=== PATIENT | male | born 1940 | race Caucasian/White ===

== ENCOUNTER 2019-07-26 12:20 | Emergency (ER) | payer MEDICARE, OTHER ==
[2019-07-26 13:06] VITALS: BP 111/74; PULSE 78
[2019-07-26] MEDS ORDERED: Albuterol/Ipratropium 3.0-0.5 MG/3 ML Neb Soln NEB ONE (13:29)
--- NOTE | 2019-07-26 13:40 | EDM.PDOC ---
ED HPI GENERAL MEDICAL PROBLEM - General Chief Complaint: Respiratory Problem Stated Complaint: COUGH,DIFFICULTY BREATHING Time Seen by Provider: 07/26/19 13:05 Source of Information: Reports: Patient History Limitations: Reports: No Limitations - History of Present Illness INITIAL COMMENTS - FREE TEXT/NARRATIVE: 78-year-old with cough and shortness of breath for the past several days with intermittent fevers. He has generalized body aches and has a frequent cough with persistent wheezing. He continues to smoke. His is in the hospital with viral bronchitis and is awaiting a test for coronavirus. He did get a flu vaccine earlier this year. Onset: Gradual Duration: Day(s): (3 days) Associated Symptoms: Reports: Cough, Fever/Chills, Headaches, Malaise, Shortness of Breath, Other (Generalized body aches). Denies: Nausea/Vomiting denies Pain Score (Numeric/FACES): 0 - Related Data Allergies Allergy/AdvReac Type Severity Reaction Status Date / Time procaine HCl [From Novocain] Allergy Rash Verified 07/26/19 13:06 Home Meds: Home Meds Albuterol Sulfate [Albuterol Sulfate HFA] 2 puff INH Q4HR PRN 06/13/13 [History] Warfarin [Coumadin] 7.5 mg PO DAILY 06/13/13 [History] hydroCHLOROthiazide [Hydrochlorothiazide] 12.5 mg PO DAILY 06/13/13 [History] Past Medical History HEENT History: Reports: Impaired Vision Other HEENT History: bad tooth Cardiovascular History: Reports: Blood Clots/VTE/DVT, Hypertension, Other (See Below) Other Cardiovascular History: dyslipidemia Factor 5 Respiratory History: Reports: COPD, Other (See Below) Other Respiratory History: emphysema Other Musculoskeletal History: blood clotsleft leg and arm Hematologic History: Reports: Blood Transfusion(s), Other (See Below) Other Hematologic History: blood clots Factor 5 - Infectious Disease History Infectious Disease History: Reports: Chicken Pox, Measles, Mumps - Past Surgical History HEENT Surgical History: Reports: Cataract Surgery GI Surgical History: Reports: Polypectomy Other GI Surgeries/Procedures: ulcer Social & Family History - Tobacco Use Smoking Status *Q: Current Every Day Smoker Years of Tobacco use: 60 Packs/Tins Daily: 1 Used Tobacco, but Quit: No Second Hand Smoke Exposure: Yes - Caffeine Use Caffeine Use: Reports: Coffee - Recreational Drug Use Recreational Drug Use: No ED ROS GENERAL - Review of Systems Review Of Systems: See Below Constitutional: Reports: Fever, Chills HEENT: Denies: Throat Pain, Vision Change Respiratory: Reports: Shortness of Breath, Wheezing, Cough. Denies: Sputum Cardiovascular: Denies: Chest Pain GI/Abdominal: Denies: Abdominal Pain, Nausea, Vomiting Musculoskeletal: Reports: Muscle Pain Skin: Reports: No Symptoms Neurological: Reports: Headache Psychiatric: Reports: No Symptoms ED EXAM, GENERAL - Physical Exam Exam: See Below Exam Limited By: No Limitations General Appearance: Alert, No Apparent Distress, Other (Frequent dry cough, O2 sats 92% on room air) Throat/Mouth: Normal Inspection Head: Atraumatic Respiratory/Chest: No Respiratory Distress, Wheezing ( widespread inspiratory and expiratory wheezes are heard bilaterally) Cardiovascular: Regular Rate, Rhythm GI/Abdominal: Soft, Non-Tender Extremities: No: Pedal Edema Neurological: Alert, Oriented Psychiatric: Normal Affect, Normal Mood Skin Exam: Warm, Dry Course - Vital Signs Last Recorded V/S: Last Vital Signs Temp 98.5 F 07/26/19 13:05 Pulse 78 07/26/19 13:05 Resp 16 07/26/19 13:05 BP 111/74 07/26/19 13:05 Pulse Ox 93 L 07/26/19 14:17 - Orders/Labs/Meds Orders: Active Orders 24 hr Category Date Time Status RT Aerosol Therapy [RC] ASDIRECTED Care 07/26/19 13:29 Active Chest 2V [CR] Routine Exams 07/26/19 13:29 Taken Isolation [COMM] Routine Oth 07/26/19 13:29 Ordered Labs: Laboratory Tests 07/26/19 07/26/19 Range/Units 13:47 13:47 WBC 5.5 (4.5-11.0) K/uL RBC 4.93 (4.30-5.90) M/uL Hgb 14.8 D (12.0-15.0) g/dL Hct 45.4 (40.0-54.0) % MCV 92 (80-98) fL MCH 30 (27-31) pg MCHC 33 (32-36) % Plt Count 163 (150-400) K/uL Neut % (Auto) 57 (36-66) % Lymph % (Auto) 22 L (24-44) % [place] % (Auto) 20 H (2-6) % Eos % (Auto) 1 L (2-4) % Baso % (Auto) 1 (0-1) % Sodium 133 L (140-148) mmol/L Potassium 3.5 L (3.6-5.2) mmol/L Chloride 96 L (100-108) mmol/L Carbon Dioxide 31 (21-32) mmol/L Anion Gap 9.5 (5.0-14.0) mmol/L BUN 13 (7-18) mg/dL Creatinine 1.1 D (0.8-1.3) mg/dL Est Cr Clr Drug Dosing 51.56 mL/min Estimated GFR (MDRD) > 60 (>60) Glucose 94 (74-106) mg/dL Calcium 8.1 L (8.5-10.1) mg/dL Meds: Medications Discontinued Medications Generic Name Dose Route Start Last Admin Trade Name Freq PRN Reason Stop Dose Admin Albuterol/Ipratropium 3 ml 07/26/19 13:29 07/26/19 14:05 Duoneb 3.0-0.5 Mg/3 Ml NEB 07/26/19 13:30 3 ml ONETIME ONE Administration - Re-Assessments/Exams Free Text/Narrative Re-Assessment/Exam: 07/26/19 14:40 2 view chest x-ray showed mild perihilar bronchial thickening especially on the right side which may be typical for influenza but could also be early atypical bronchitis. He was positive for influenza A. Patient was started on Zithromax , given a DuoNeb and O2 saturations were rechecked and were 93%. He had less wheezing objectively. He did not want to be hospitalized, so was sent home for isolation, he will use his nebulizer every 4-6 hours as needed and take the Zithromax as directed. If worsening he will return. Departure - Departure Time of Disposition: 14:18 Disposition: Home, Self-Care 01 Clinical Impression: Influenza A - Discharge Information Instructions: Influenza, Adult, [id number] Referrals: aKt Weinstein MD [Primary Care Provider] - Forms: ED Department Discharge Care Plan Goals: Avoid cigarette smoking, take antibiotic as prescribed and use nebulizer 4 hours if needed. Return if worsening despite treatment. Sepsis Event Note - Evaluation Sepsis Screening Result: No Definite Risk - Focused Exam Vital Signs: Vital Signs Temp Pulse Resp BP Pulse Ox 07/26/19 14:17 93 L 07/26/19 13:05 98.5 F 78 16 111/74 92 L Date Exam was Performed: 07/26/19 Time Exam was Performed: 14:34 - My Orders Last 24 Hours: My Active Orders 07/26/19 13:29 RT Aerosol Therapy [RC] ASDIRECTED Chest 2V [CR] Routine Isolation [COMM] Routine - Assessment/Plan Last 24 Hours: My Active Orders 07/26/19 13:29 RT Aerosol Therapy [RC] ASDIRECTED Chest 2V [CR] Routine Isolation [COMM] Routine
--- NOTE | 2019-07-27 10:05 | CR ---
CHEST: 2 view CLINICAL HISTORY:Dyspnea COMPARISON:None FINDINGS: Heart size is normal. There is mild pulmonary vascular cephalization. There is some prominence of perihilar lung markings. There are atherosclerotic changes in the aorta.. There is blunting of the posterior right costophrenic angle. This may be due to pleural scarring or small effusion. Impression: Vascular cephalization may represent pulmonary venous hypertension Prominent perihilar lung markings the may be due to some mild congestive failure. Pneumonitis is not excluded Small right pleural effusion versus pleural thickening
== END 2019-07-26 14:18 | disposition home or self-care (01) ==
LOC: JP.ED 12:20
DX: J10.1 Influenza due to other identified influenza virus with other respiratory manifestations (principal); J43.9 Emphysema, unspecified; I10 Essential (primary) hypertension; F17.210 Nicotine dependence, cigarettes, uncomplicated; Z88.8 Allergy status to other drugs, medicaments and biological substances; Z79.01 Long term (current) use of anticoagulants; Z79.899 Other long term (current) drug therapy
CPT/HCPCS: 36415; 71046; 71046-26; 80048; 85025; 87804; 87804-59; 94640; 99285-25; J7620-GY

== ENCOUNTER 2023-03-22 09:42 | Emergency (ER) | payer OTHER, MEDICARE ==
[2023-03-22 10:16] VITALS: BP 130/69; PULSE 87
[2023-03-22 10:58] LABS: BASOPHILS ABSOLUTE AUTO 0.03 K/uL (0.00-0.10); BASOPHILS PERCENT AUTO 0.3 % (0.1-1.3); EOSINOPHILS ABSOLUTE AUTO 0.08 K/uL (0.00-0.40); EOSINOPHILS PERCENT AUTO 0.9 % (0.0-5.4); HEMATOCRIT 35.8 % (38.4-49.7); HEMOGLOBIN 11.9 g/dL (12.9-16.9); IMMATURE GRAN ABSOLUTE AUTO 0.05 K/uL (0.00-0.23); IMMATURE GRAN PERCENT AUTO 0.6 % (0.0-0.7); LYMPHOCYTES ABSOLUTE AUTO 1.21 K/uL (0.8-3.3); LYMPHOCYTES PERCENT AUTO 13.8 % (11.4-47.7); MEAN CORPUSCULAR HGB CONC 33.2 g/dL (31.6-35.5); MEAN CORPUSCULAR VOLUME 93.2 fL (81.4-99.0); MONOCYTES ABSOLUTE AUTO 0.86 K/uL (0.20-0.90); MONOCYTES PERCENT AUTO 9.8 % (3.3-12.6); NEUTROPHILS ABSOLUTE AUTO 6.57 K/uL (1.0-7.6); NEUTROPHILS PERCENT AUTO 74.6 % (40.0-78.1); PLATELET COUNT,PLT 192 K/uL (130-375); RED BLOOD CELL COUNT 3.84 M/uL (4.14-5.76); WHITE BLOOD CELL COUNT,WBC 8.8 K/uL (3.2-11.0)
[2023-03-22 11:18] LABS: PROTHROMBIN TIME 44.7 sec (9.2-10.6)
[2023-03-22 11:24] LABS: INR 4.9
== END 2023-03-22 12:05 | disposition home or self-care (01) ==
LOC: JP.ED 09:42
DX: S40.021A Contusion of right upper arm, initial encounter (principal); F17.210 Nicotine dependence, cigarettes, uncomplicated; J44.9 Chronic obstructive pulmonary disease, unspecified; I10 Essential (primary) hypertension; Z79.01 Long term (current) use of anticoagulants; Z79.899 Other long term (current) drug therapy; Z88.8 Allergy status to other drugs, medicaments and biological substances; W22.8XXA Striking against or struck by other objects, initial encounter
CPT/HCPCS: 36415; 73070-26-RT; 73070-RT; 85025; 85610; 99283

== ENCOUNTER 2023-07-20 14:45 | Inpatient (IN) | payer OTHER, MEDICARE ==
[2023-07-20] MEDS ORDERED: Ondansetron 4 MG Tab.DIS PO PRN (15:51)
[2023-07-20] MEDS ORDERED: Sodium Chloride 0.9% 10 ML Syringe FLUSH PRN (15:51)
[2023-07-20] MEDS ORDERED: Ondansetron 4 MG/2 ML SDV IV PRN (15:51)
[2023-07-20] MEDS ORDERED: Sennosides/Docusate Sodium 50-8.6 MG Tab PO PRN (15:51)
[2023-07-20] MEDS ORDERED: Magnesium Hydroxide 400 MG/5 ML Susp 30 ML Cup PO PRN (15:51)
[2023-07-20] MEDS ORDERED: Acetaminophen 325 MG Tab PO PRN (15:51)
[2023-07-20] MEDS ORDERED: Codeine/guaiFENesin 10-100 MG/5 ML Syrup 5 ML Cup PO PRN (15:57)
[2023-07-20] MEDS ORDERED: Benzonatate 100 MG Cap PO PRN (15:57)
[2023-07-20 16:14] LABS: BASOPHILS ABSOLUTE AUTO 0.02 K/uL (0.00-0.10); BASOPHILS PERCENT AUTO 0.3 % (0.1-1.3); EOSINOPHILS ABSOLUTE AUTO 0.07 K/uL (0.00-0.40); HEMATOCRIT 44.6 % (38.4-49.7); HEMOGLOBIN 14.5 g/dL (12.9-16.9); IMMATURE GRAN ABSOLUTE AUTO 0.04 K/uL (0.00-0.23); IMMATURE GRAN PERCENT AUTO 0.5 % (0.0-0.7); LYMPHOCYTES ABSOLUTE AUTO 1.79 K/uL (0.8-3.3); LYMPHOCYTES PERCENT AUTO 24.4 % (11.4-47.7); MEAN CORPUSCULAR HEMOGLOBIN 29.5 pg (31.6-35.5); MEAN CORPUSCULAR HGB CONC 32.5 g/dL (31.6-35.5); MEAN CORPUSCULAR VOLUME 90.8 fL (81.4-99.0); MONOCYTES ABSOLUTE AUTO 0.76 K/uL (0.20-0.90); MONOCYTES PERCENT AUTO 10.4 % (3.3-12.6); NEUTROPHILS ABSOLUTE AUTO 4.66 K/uL (1.0-7.6); NEUTROPHILS PERCENT AUTO 63.4 % (40.0-78.1); PLATELET COUNT,PLT 163 K/uL (130-375); RED BLOOD CELL COUNT 4.91 M/uL (4.14-5.76); WHITE BLOOD CELL COUNT,WBC 7.3 K/uL (3.2-11.0)
[2023-07-20] MEDS: Azithromycin 250 MG Tab PO SCH (16:16)
[2023-07-20] MEDS: Albuterol/Ipratropium 3.0-0.5 MG/3 ML Neb Soln NEB SCH (16:17)
[2023-07-20] MEDS: predniSONE 20 MG Tab PO ONE (16:17)
[2023-07-20 16:31] LABS: INR 3.4; PROTHROMBIN TIME 31.9 sec (9.2-10.6)
[2023-07-20 16:40] LABS: C-REACTIVE PROTEIN 5.72 mg/dL (<0.50); CALCIUM 8.2 mg/dL (8.5-10.1); MAGNESIUM 1.8 mg/dL (1.8-2.4); POTASSIUM,K 3.5 mmol/L (3.6-5.2)
[2023-07-20 16:45] LABS: ANION GAP 10.5 mmol/L (5.0-14.0)
[2023-07-20] MEDS: cefTRIAXone 2 GM in Sodium Chloride 0.9% 50 ML IV SCH (16:47)
[2023-07-20] MEDS: Albuterol 0.083% 2.5 MG/3 ML Neb Soln NEB PRN (19:19)
[2023-07-20] MEDS: Potassium Chloride 20 MEQ Tab.ER PO ONE (21:36)
[2023-07-20] MEDS: Lactobacillus Rhamnosus GG (Probiotic) Cap PO SCH (21:36)
[2023-07-21 05:59] LABS: PROTHROMBIN TIME 37.8 sec (9.2-10.6)
[2023-07-21 06:00] LABS: CALCIUM 8.7 mg/dL (8.5-10.1); CREATININE 0.8 mg/dL (0.8-1.3); EST CRCL DRUG DOSING (CG) 71.25 mL/min; POTASSIUM,K 4.3 mmol/L (3.6-5.2)
[2023-07-21 06:24] LABS: ANION GAP 7.3 mmol/L (5.0-14.0)
[2023-07-21 06:25] LABS: INR 4.1
[2023-07-21] MEDS: Tiotropium BR/Olodaterol HCL 4 GM Inhalation Spray 2.5mcg/1 dose; 10 doses INH SCH (08:08)
[2023-07-21] MEDS: Hydrochlorothiazide 12.5 MG Cap PO SCH (08:24)
[2023-07-21] MEDS: predniSONE 20 MG Tab PO SCH (08:24)
[2023-07-21 12:08] VITALS: BP 152/89; PULSE 105
[2023-07-21] MEDS ORDERED: Warfarin 2.5 MG Tab PO SCH (13:00)
== END 2023-07-21 12:35 | disposition home or self-care (01) | DRG 189 ==
LOC: JP.MS 14:45 → OBSVTOIN 15:51 → JP.MS 15:51
PROVIDERS: ADMIT Internal Medicine; ATTEND Internal Medicine
DX: J96.01 Acute respiratory failure with hypoxia (principal); J44.1 Chronic obstructive pulmonary disease with (acute) exacerbation; J44.0 Chronic obstructive pulmonary disease with (acute) lower respiratory infection; D68.51 Activated protein C resistance; M19.90 Unspecified osteoarthritis, unspecified site; I10 Essential (primary) hypertension; J43.9 Emphysema, unspecified; E87.6 Hypokalemia; F17.210 Nicotine dependence, cigarettes, uncomplicated; Z88.8 Allergy status to other drugs, medicaments and biological substances; Z98.49 Cataract extraction status, unspecified eye; Z79.01 Long term (current) use of anticoagulants; Z99.81 Dependence on supplemental oxygen; Z86.010 Personal history of colon polyps
CPT/HCPCS: 36415; 80048; 83735; 85025; 85610; 86140; 87070; 87205; 94640; 99222; 99238; A9270-GY; J0696; J3490; J7512; J7620